=== PATIENT | male | born 1990 | race Caucasian/White ===

== ENCOUNTER 2019-08-30 10:49 | Emergency (ER) | payer OTHER ==
[2019-08-30] MEDS ORDERED: Morphine 4 MG/ML VIAL (1 ml) 4 MG/ML VIAL IV ONE (11:13)
[2019-08-30] MEDS ORDERED: NS 0.9% 1000 ML** 1,000 ML IV ONE (11:13)
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
[2019-08-30 11:27] LABS: Hematocrit 46 % (42-52); Hemoglobin 16.7 g/dL (14.0-18.0); Mean Corpuscular HGB Conc 36 g/dL (31-36); Mean Corpuscular Hemoglobin 31 pg (27-31); Mean Corpuscular Volume 87 fL (80-94); Mean Platelet Volume 6.4 fL (7.4-10.4); Platelet Count 311 10^3/uL (150-450); Red Blood Count 5.31 10^6 /uL (4.18-5.48); Red Cell Distribution Width 13 % (10-15)
[2019-08-30 11:49] LABS: ABS Basophils 0.1 10^3/ul (0-0.2); ABS Eosinophils 0.2 10^3/ul (0-0.6); ABS Monocytes 0.5 10^3/ul (0-0.8); ABS Neutrophils 7.2 10^3/ul (1.5-7.7); Eosinophil % 1.9 %; Lymphocyte % 20.1 %; Nucleated Red Blood Cells % 0.1
[2019-08-30 11:51] LABS: Albumin 4.2 g/dL (3.2-5.2); Albumin/Globulin Ratio 1.7 (1-3); BUN/Creatinine Ratio 7.9 (8-20); Calcium 9.5 mg/dL (8.6-10.3); EGFR African American 147.8 (>60); EGFR Non-African American 122.1 (>60); Globulin 2.5 g/dL (2-4); Potassium 4.3 mmol/L (3.5-5.0); Total Bilirubin 0.3 mg/dL (0.2-1.0); Total Protein 6.7 g/dL (6.4-8.9)
[2019-08-30] MEDS ORDERED: Iohexol 300* (CONTRAST) 10 ML SDV IV ONE (12:47)
[2019-08-30 14:33] VITALS: BP 131/95
== END 2019-08-30 14:33 | disposition home or self-care (01) ==
LOC: ED 10:49
DX: R07.9 Chest pain, unspecified (principal); R10.9 Unspecified abdominal pain; R30.0 Dysuria; M54.9 Dorsalgia, unspecified; F17.210 Nicotine dependence, cigarettes, uncomplicated; Z90.89 Acquired absence of other organs; Z88.5 Allergy status to narcotic agent; Z88.0 Allergy status to penicillin
CPT/HCPCS: 36415; 72131; 74177; 80053; 85025; 85060; 96361; 96374; 99283; J2270; Q9967